=== PATIENT | female | born 1950 | race Caucasian/White ===

== ENCOUNTER 2024-08-17 17:03 | Observation (INO) ==
[2024-08-17] MEDS ORDERED: IOPAMIDOL 100 ML BOTTLE IV ONE (17:04)
[2024-08-17] MEDS: LACTATED RINGERS 1,000 ML IV ONE (18:15)
[2024-08-17 18:53] LABS: Basophils # (Auto) 0.07 K/mcL (0.00-0.30); Basophils % (Auto) 0.9 % (0.0-2.0); Eosinophils # (Auto) 0.71 K/mcL (0.00-0.70); Eosinophils % (Auto) 9.2 % (0.0-7.0); Hematocrit 38.1 % (34.1-44.9); Hemoglobin 12.9 g/dL (11.2-15.7); Lymphocytes # (Auto) 1.61 K/mcL (1.50-4.80); Lymphocytes % (Auto) 20.9 % (15.5-49.0); Mean Cell Volume 98.4 fL (80.0-100.0); Mean Corpuscular HGB Conc 33.9 g/dL (31.0-36.0); Mean Platelet Volume 9.2 fL (8.8-12.5); Monocytes # (Auto) 0.63 K/mcL (0.10-0.90); Monocytes % (Auto) 8.2 % (1.0-12.0); Neutrophils % (Auto) 60.4 % (38.0-78.0); Platelet Count 350 K/mcL (140-440); RBC 3.87 M/mcL (3.59-5.38); WBC 7.7 K/mcL (4.5-11.0)
[2024-08-17 19:07] LABS: ALT/SGPT 28 U/L (<40); AST/SGOT 27 U/L (<32); Albumin/Globulin Ratio 1.9 (1.0-2.3); Alkaline Phosphatase 78 U/L (39-117); Bilirubin,Total 0.3 mg/dL (0.1-1.0); Blood Urea Nitrogen 8 mg/dL (8-23); Carbon Dioxide 23 mmol/L (22-30); Chloride 101 mmol/L (96-108); Globulin 2.1 gm/dL (2.2-3.7); Glomerular Filtration Rate 85; Glucose 97 mg/dL (70-105); Potassium 3.7 mmol/L (3.3-5.1); Sodium 136 mmol/L (133-145)
[2024-08-17] MEDS: ASPIRIN 81 MG TAB.CHEW CHEWED ONE (20:26)
[2024-08-17] MEDS: ASPIRIN 325 MG ENTERIC COATED TABLET PO ONE (20:28)
[2024-08-17 20:35] LABS: Appearance,Urine Clear (Clear); Bacteria,Urine Many /hpf (0); Bilirubin,Urine Negative (Negative); Color,Urine Yellow; Glucose,Urine (UA) Negative (Negative); Ketones,Urine Negative (Negative); Leukocyte Esterase,Urine Trace /uL (Negative); Nitrate,Urine Positive (Negative); Protein,Urine Negative (Negative); Specific Gravity,Urine <= 1.005 (1.000-1.035); Urine Blood Trace-intact ery/mcL (Negative); Urine RBC 3 /hpf (0-3); Urine Squamous Epithelial Cell 1 /hpf (0-4); Urine WBC 8 /hpf (0-4); Urobilinogen,Urine Normal
[2024-08-17] MEDS ORDERED: POTASSIUM CHLORIDE 20 MEQ TABLET PO PRN ×2 (21:41)
[2024-08-17] MEDS ORDERED: METOPROLOL TARTRATE 5 MG/5 ML VIAL IV PRN (21:41)
[2024-08-17] MEDS ORDERED: MAGNESIUM SULFATE 2 GM/50 ML BAG IV PRN (21:41)
[2024-08-17] MEDS ORDERED: POTASSIUM CHLORIDE 40 MEQ in DEXTROSE 5% IN WATER 500 ML IV PRN (21:41)
[2024-08-17] MEDS ORDERED: POLYETHYLENE GLYCOL 3350 17 GM PACKET PO PRN (21:41)
[2024-08-17] MEDS ORDERED: IPRATROPIUM/ALBUTEROL 3 ML AMPUL.NEB NEB PRN (21:41)
[2024-08-17] MEDS ORDERED: SENNOSIDES 1 TABLET PO PRN (21:41)
[2024-08-17] MEDS: cefTRIAXone 1 GM VIAL IV SCH (22:55)
[2024-08-17] MEDS: rOPINIRole 0.25 MG TABLET PO ONE (22:59)
[2024-08-17] MEDS: ATORVASTATIN 40 MG TABLET PO SCH (22:59)
[2024-08-18 00:13] LABS: HDL Cholesterol 68 mg/dL (>40); LDL Cholesterol,Calculated 93 mg/dL (<100); Non-HDL Cholesterol 106 mg/dL (<130); Triglycerides 66 mg/dL (<150)
[2024-08-18] MEDS: DOCUSATE SODIUM 100 MG CAPSULE PO SCH (00:23)
[2024-08-18] MEDS: cefTRIAXone 1 GM VIAL ONE (00:46)
[2024-08-18] MEDS: 0.9 % SODIUM CHLORIDE 1,000 ML IV ONE (01:07)
[2024-08-18] MEDS: ASPIRIN 81 MG TAB.CHEW CHEWED ONE (01:45)
[2024-08-18] MEDS: CLOPIDOGREL 75 MG TABLET PO ONE (01:45)
[2024-08-18] MEDS: LORazepam 2 MG/ML VIAL ONE (08:31)
[2024-08-18] MEDS: LORazepam 2 MG/ML VIAL IV ONE (08:31)
[2024-08-18] MEDS: ENOXAPARIN 40 MG/0.4 ML SYRINGE SQ ONE (09:20)
[2024-08-18] MEDS: ASPIRIN 81 MG TAB.CHEW PO SCH (09:20)
[2024-08-18] MEDS: APIXABAN 5 MG TABLET PO SCH (09:20)
[2024-08-18] MEDS: MONTELUKAST 10 MG TABLET PO SCH (09:20)
[2024-08-18] MEDS: ACETAMINOPHEN 325 MG TABLET PO PRN (13:34)
[2024-08-18] MEDS ORDERED: ATORVASTATIN 20 MG TABLET PO SCH (21:00)
[2024-08-19] MEDS ORDERED: DILTIAZEM 180 MG CAP.XL.24H PO SCH (09:00)
[2024-08-19] MEDS ORDERED: PNEUMOCOCCAL 23-VAL P-SAC VAC 0.5 ML SYRINGE IM ONE (10:00)
== END 2024-08-18 14:22 | disposition home or self-care (01) ==
LOC: ICU 17:03 → ED 17:03 → ICU 23:57
PROVIDERS: ADMIT Internal Medicine; ATTEND Internal Medicine